=== PATIENT | male | born 1995 | race Caucasian/White ===

== ENCOUNTER 2024-08-03 11:45 | Emergency (ER) | payer OTHER, SELFPAY ==
[2024-08-03 11:47] VITALS: BP 116/72; PULSE 94; RESP 18; TEMP 36.1; O2SAT 99
[2024-08-03 11:49] VITALS: BMI 29.8
--- NOTE | 2024-08-03 11:59 | RAD_ITS ---
PROCEDURE: ELBOW MIN 3 VIEWS REASON FOR EXAM: Pain TECHNIQUE: three views right elbow COMPARISON: None. FINDINGS: Osseous structures intact. Joint spaces are preserved. Mild soft tissue swelling. RAD/Elbow min 3 Views IMPRESSION: As above. Reading Location: [facility]
--- NOTE | 2024-08-03 12:02 | EX.ED.UPPERE ---
HPI <SANG Jeffery - Last Filed: 08/03/24 12:57> History of Present Illness Chief Complaint: Upper Extremity Injury Narrative Narrative: Patient presenting today with right elbow pain after slipping on ice and falling directly on his elbow this morning at work. He is right-handed. He reports decreased range of motion in the elbow due to pain. He denies hitting his head, LOC, or use of blood thinners. He denies any other injury. PFSH <SANG Jeffery - Last Filed: 08/03/24 12:57> PFSH Allergy/AdvReac Type Severity Reaction Status Date / Time No Known Allergies Allergy Verified 08/03/24 11:46 Social History Smoking Status: Never smoker ROS <SANG Jeffery - Last Filed: 08/03/24 12:57> ROS ED Constitutional Constitutional ED: Denies chills or fever(s) Cardiovascular Cardiovascular: Denies chest pain Respiratory/Chest Respiratory/Chest: Denies dyspnea Musculoskeletal Musculoskeletal: Reports arthralgias Integumentary Denies Abrasions Neurologic Neurologic: Denies paresthesias EXAM <SANG Jeffery - Last Filed: 08/03/24 12:57> Physical Exam Const Vital Signs: 08/03/24 11:47 Temperature 96.9 F L Temperature Source Temporal Pulse Rate 94 Respiratory Rate 18 Blood Pressure 116/72 Blood Pressure Mean 86 Pulse Ox 99 Oxygen Delivery Method Room Air Positive well nourished, well developed and no apparent distress General Appearance ED: well developed HEENT Reports normocephalic and head/scalp atraumatic Mouth ED: Yes moist mucous membranes normal Eyes PERRL and EOMs intact bilaterally Neck full ROM and supple Chest Wall inspection of chest normal Resp normal respiratory effort and clear to auscultation bilaterally Cardio regular rate and regular rhythm GI soft to palpation, non-tender, non-distended and no masses Back/Spine normal ROM and normal to inspection Extremity normal to inspection Extremity Narrative: No joint effusion, decreased range of motion to the right elbow due to pain, pain palpation to the right olecranon process, no pain to the right forearm or along the right humerus. Right radial pulse 2+, good cap refill, sensation intact. Neuro oriented x3, CN's II-XII intact bilaterally, moves all extremities, no focal motor deficits and no sensory deficits noted Sensorium / Orientation: awake and alert Psych mental status grossly normal and thought process normal Skin no rashes or lesions noted and no wounds [facility] <SANG Jeffery - Last Filed: 08/03/24 12:57> [facility] Narrative Medical decision making narrative: Patient presenting with right elbow pain after slipping and falling on his right elbow this morning at work. X-ray of the right elbow will be obtained to assess for fracture. Patient given ibuprofen for pain. He did not hit his head and denies any other injury. X-rays negative for fracture. He was given a sling. RICE instructions were discussed. He can alternate Tylenol and ibuprofen as needed at home for pain. Recommended he follow-up with his PCP in 1 week if no improvement of pain. Patient discharged home in stable condition. I have personally performed a face to face assessment of the patient and have reviewed the ANABEL Note. I performed a substantive portion of the visit including all aspects of the following. My han findings include: History is healthy 28-year-old male slipped on ice on steps. Injuring his right elbow. Did not hit his head no LOC. Said he hit his back. Denies recent and back pain. This is a workers comp related injury. Patient is right-hand dominant. No prior history of surgery to the right arm. Exam is [well-appearing 28-year-old male. Vital signs stable afebrile. H EENT exam pupils round react light. No trauma to his head or scalp. Nontender. No hematoma. Neck nontender full range of motion. Back nontender. Spine nontender. No bruising. Lungs clear. Heart regular rhythm rate about 90 no murmur. Chest wall ribs nontender. Abdomen soft nontender. Pelvic girdle intact. Moving all 4 extremities. Neurovascular intact. No deformity or swelling. Mild tenderness right elbow. However he has full supination and pronation of the elbow. Flexion extension of the elbow. Shoulder distal forearm wrist and hand are nontender neurovascular intact. 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 Otherwise exam unremarkable.] Medical Decision Making [right elbow x-ray shows no fracture or dislocation. Ice. Treated as elbow contusion. Motrin and Tylenol. Sling per patient request.] Other additions or changes: [None] <Dr. Vasile Veloz MD - Last Filed: 08/03/24 12:38> [facility]DM Narrative Medical decision making narrative: Patient presenting with right elbow pain after slipping and falling on his right elbow this morning at work. X-ray of the right elbow will be obtained to assess for fracture. Patient given ibuprofen for pain. He did not hit his head and denies any other injury. I have personally performed a face to face assessment of the patient and have reviewed the ANABEL Note. I performed a substantive portion of the visit including all aspects of the following. My han findings include: History is healthy 28-year-old male slipped on ice on steps. Injuring his right elbow. Did not hit his head no LOC. Said he hit his back. Denies recent and back pain. This is a workers comp related injury. Patient is right-hand dominant. No prior history of surgery to the right arm. Exam is [well-appearing 28-year-old male. Vital signs stable afebrile. H EENT exam pupils round react light. No trauma to his head or scalp. Nontender. No hematoma. Neck nontender full range of motion. Back nontender. Spine nontender. No bruising. Lungs clear. Heart regular rhythm rate about 90 no murmur. Chest wall ribs nontender. Abdomen soft nontender. Pelvic girdle intact. Moving all 4 extremities. Neurovascular intact. No deformity or swelling. Mild tenderness right elbow. However he has full supination and pronation of the elbow. Flexion extension of the elbow. Shoulder distal forearm wrist and hand are nontender neurovascular intact. 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 Otherwise exam unremarkable.] Medical Decision Making [right elbow x-ray shows no fracture or dislocation. Ice. Treated as elbow contusion. Motrin and Tylenol. Sling per patient request.] Other additions or changes: [None] Radiography Diagnostic Testing: Right elbow, 3 views, interpreted by myself shows no acute abnormality. No fracture or dislocation. Went over the film with the patient. Discharge Plan Triage Chief Complaint: Upper Extremity Injury ED Midlevel Provider: Meryl Haji ED Provider: Vasile Veloz Dx/Rx/DC Orders Clinical Impression: Fall, Contusion of right elbow, Encounter related to worker's compensation claim Instructions: ED Contusion, Upper Extremity Primary Care Provider: Care Physician,No Primary Referrals: NOT,DEFINED [Non-Staff] - Activity Restrictions/Additional Instructions: Follow-up with your PCP in 1 week if no improvement of your pain. Alternate Tylenol and ibuprofen as needed for pain. Rest, ice the area. Print Language: Pashto Disposition Disposition: Home, Self Care Discharge Date/Time: 08/03/24 12:49
[2024-08-03] MEDS: Ibuprofen 600 MG Tablet PO (12:03)
== END 2024-08-03 12:49 | disposition home or self-care (01) ==
PROVIDERS: Emergency Provider Emergency Medicine; Visit Provider Emergency Medicine
DX: S50.01XA Contusion of right elbow, initial encounter (principal); W00.1XXA Fall from stairs and steps due to ice and snow, initial encounter; Y99.0 Civilian activity done for income or pay
CPT/HCPCS: 73080; 99282